=== PATIENT | male | born 1980 | race Caucasian/White ===

== ENCOUNTER 2018-08-22 03:52 | Inpatient (IN) ==
[2018-08-22] MEDS ORDERED: LABETALOL IV ONE (04:30)
--- NOTE | 2018-08-22 04:31 | PROVIDER DOCUMENTATION ---
HPI-Neurological Disorder - General Chief Complaint: Weakness Stated Complaint: muscle pain Time Seen by Provider: 08/22/18 04:24 Source: patient Allergies/Adverse Reactions: Patient Allergies Allergy/AdvReac Type Severity Reaction Status Date / Time Corticosteroids AdvReac Intermediate NAUSEA/VOMI Verified 05/06/17 02:55 (Glucocorticoids) TING prednisone AdvReac Intermediate NAUSEA/VOMI Verified 05/06/17 02:55 TING Home Medications: Home Medication List Medication Instructions Recorded Confirmed Last Taken Type Cyclobenzaprine [Flexeril] 10 mg PO TID PRN #20 tab 05/06/17 Unknown Rx Hydrocodone/Acetaminophen [[place] 1 ea PO Q4-6H PRN PRN #14 tab 05/06/17 Unknown Rx 7.5-325 Tablet] Ibuprofen [Motrin] 800 mg PO Q8H PRN PRN #30 tab 05/06/17 Unknown Rx - History of Present Illness-Neuro Nature of Presenting Problem: pt says that 2 days ago, began with muscle ache in thighs, shoulders, like had over exerted, which has not done. Last pm, went to urgent care, where was dx with the flu, even though had not had fever, no N/V. No swab was done either. When awoke this am, was barely able to move R leg, was not able to use L arm, nor left leg. Is able to use R arm to small degree. No headache, no CO, no SOB, no palpitations. no incontinence Review of Systems - Adult - REVIEW OF SYSTEMS - ADULT Constitutional: reports: see HPI Eyes: reports: no symptoms reported Ears, Nose, Mouth & Throat: reports: no symptoms reported Cardiovascular: reports: no symptoms reported Respiratory: reports: no symptoms reported Gastrointestinal: reports: no symptoms reported Genitourinary: reports: no symptoms reported Musculoskeletal: reports: see HPI Integumentary: reports: no symptoms reported Neurological: reports: see HPI Psychiatric: reports: no symptoms reported Endocrine: reports: no symptoms reported Hematologic/Lymphatic: reports: no symptoms reported Allergic/Immunologic: reports: no symptoms reported Past History - Adult - PAST MEDICAL HISTORY-ADULT Review of Records: reports: Medications Reviewed Major Childhood Illnesses: reports: denies history Cardiovascular: reports: HTN, [place] (05/2013) Respiratory: reports: other (lung spot) Gastrointestinal: reports: denies history Obstetrical/Gynecological: reports: denies history Genitourinary: reports: other (kidney stents) Musculoskeletal: reports: denies history Neurological: reports: denies history Psychiatric: reports: denies history Endocrine/Immune: reports: denies history Other Conditions: reports: denies history - PRIOR SURGERIES/PROCEDURES Surgical/Procedure History: reports: appendectomy, orthopedic (extremity) (hand surgery), back/neck (back), other (partial lung resection right side, ) - PRIOR HOSPITALIZATIONS Prior Hospitalizations: reports: for other non-related - IMMUNIZATION STATUS Childhood Immunizations: See Nurse Assessment Flu Vaccine: See Nurse Assessment - FAMILY HISTORY Family History: reviewed, not pertinent - SOCIAL HISTORY Smoking: cigarettes Physical Exam- Neurological - Physical Exam-Neuro Initial Vital Signs Reviewed: Yes General Appearance: appears well, alert, mild distress Eye Exam: bilateral eye: normal inspection, PERRL, EOMI HENMT: normocephalic/atraumatic, moist mucous membranes, normal ENT inspection, pharynx normal Head Injury: no evidence of injury Neck: non-tender, full range of motion, supple Respiratory: lungs clear, normal breath sounds, no pleuratic chest pain, no respiratory distress, no accessory muscle use Cardiovascular: regular rate, rhythm, no edema, no murmur Abdominal Exam: non tender, soft Peripheral Pulses: radial (R): 2+, radial (L): 2+ Extremity: no pedal edema, no calf tenderness, other (weakness of all extrem, able to move R arm against gravity, no others) buggy ladle tender Exam: other (CN II-XII intact) Coordination/Gait: other (not able) Motor/Sensory: weak motor strength RUE, weak motor strength LUE (unable to use), weak motor strength RLE (unable to lift), weak motor strength LLE (unable to lift) Neurologic: other (CN II-XII intact) Integumentary: normal color, normal turgor, warm/dry Psych/Mental Status: normal mood/affect, normal thought content, normal thought process, oriented x 3 - Glascow Coma Scale Best Eye Response: (4) open spontaneously Best Verbal Response: (5) oriented Best Motor Response: (6) obeys commands Progress - PLAN OF CARE/RESULTS Progress/Plan/Lab Results: Vital Signs - 8 hr 08/22/18 04:06 08/22/18 05:04 Temperature 97.9 F 97.8 F Pulse Rate 76 67 Respiratory Rate 20 16 Blood Pressure 147/120 138/86 O2 Sat by Pulse Oximetry 96 96 Laboratory Results - last 24 hr 08/22/18 08/22/18 08/22/18 04:12 04:12 04:17 WBC 10.44 RBC 5.86 Hgb 17.5 Hct 49.7 MCV 84.8 MCH 29.9 MCHC 35.2 RDW Std Deviation 13.4 Plt Count 351 MPV 9.8 Immature Gran % (Auto) 0.4 Neut % (Auto) 85.9 H Lymph % (Auto) 11.5 L Anson % (Auto) 2.2 Eos % (Auto) 0.0 Baso % (Auto) 0.0 Immature Gran # (Auto) 0.04 Neut # (Auto) 8.97 H Lymph # (Auto) 1.20 Anson # (Auto) 0.23 Eos # (Auto) 0.00 Baso # (Auto) 0.00 Sodium 132 L Potassium 1.8 L* Chloride 99 Carbon Dioxide 18 L Anion Gap 15 BUN 14 Creatinine 0.8 Estimated GFR/1.73 m2 > 60 BUN/Creatinine Ratio 18 Glucose 249 H POC Glucose 231 H Calculated Osmolality 273 Calcium 9.2 Phosphorus 0.8 L* Magnesium 1.9 Total Bilirubin 0.18 L AST 19 ALT 18 Alkaline Phosphatase 105 Total Protein 7.3 Albumin 3.9 Globulin 3.4 Albumin/Globulin Ratio 1.1 Urine Source Urine Opiates Screen Ur Oxycodone Screen Ur Methadone, Qual Ur Barbiturates Screen Ur Phencyclidine Scrn Ur Amphetamines Screen U Benzodiazepines Scrn Urine Cocaine Screen U Cannabinoids Screen 08/22/18 08/22/18 05:20 05:20 WBC RBC Hgb Hct MCV MCH MCHC RDW Std Deviation Plt Count MPV Immature Gran % (Auto) Neut % (Auto) Lymph % (Auto) Anson % (Auto) Eos % (Auto) Baso % (Auto) Immature Gran # (Auto) Neut # (Auto) Lymph # (Auto) Anson # (Auto) Eos # (Auto) Baso # (Auto) Sodium Potassium Chloride Carbon Dioxide Anion Gap BUN Creatinine Estimated GFR/1.73 m2 BUN/Creatinine Ratio Glucose POC Glucose Calculated Osmolality Calcium Phosphorus Magnesium Total Bilirubin AST ALT Alkaline Phosphatase Total Protein Albumin Globulin Albumin/Globulin Ratio Urine Source CLEAN CATCH Urine Opiates Screen NONE DETECTED Ur Oxycodone Screen NONE DETECTED Ur Methadone, Qual NONE DETECTED Ur Barbiturates Screen NONE DETECTED Ur Phencyclidine Scrn NONE DETECTED Ur Amphetamines Screen NONE DETECTED U Benzodiazepines Scrn NONE DETECTED Urine Cocaine Screen NONE DETECTED U Cannabinoids Screen NONE DETECTED Orders Category Date Time Status CT HEAD/C-SPINE W/O CONTRAST [CT] Stat Exams 08/22/18 04:24 Taken CBC WITH DIFF [HEME] Stat Lab 08/22/18 04:12 Completed COMPREHENSIVE METABOLIC PANEL [CHEM] Stat Lab 08/22/18 04:12 Completed MAGNESIUM [CHEM] Stat Lab 08/22/18 04:12 Completed PHOSPHORUS [CHEM] Stat Lab 08/22/18 04:12 Completed TSH Stat Lab 08/22/18 04:12 Received URINALYSIS W/POSS RFLX CULT [URINALYSIS] Stat Lab 08/22/18 05:20 Ordered URINE DRUG SCREEN Stat Lab 08/22/18 05:20 Completed Labetalol Med 08/22/18 04:30 Discontinued 20 mg IV NOW ONE Potassium Chloride 20 Meq/Swi Med 08/22/18 06:00 Discontinued 20 meq in 100 ml IV Q2H Potassium Chloride 20% Liquid Med 08/22/18 05:27 Discontinued 40 meq PO NOW ONE Potassium Phosphate 40 meq Med 08/22/18 05:40 Active 0.9% Sodium Chloride Inj [Ns] 250 ml IV NOW Result Diagrams: 08/22/18 04:12 08/22/18 04:12 - EKG 1 Time of EKG reading by physician:: 04:45 EKG Read and Signed by:: Jayce Downing EKG Interpretation (*Must complete 3 of following elements*): Abnormal Rate: 77 Rhythm: NSR QRS: normal ST Wave: non-specific ST changes - CT/MRI 1 CT Study: Cervical Spine, Head Impression: Normal - CONSULTS/PCP/HOSPITALIST Notification #1 *Consult/PCP/Hospitalist*: [place] Time Discussed: 05:44 Consult Disposition: Will see in ED, Admit Departure - Departure Date of Disposition Decision: 08/22/18 Time of Disposition Decision: 05:43 DIAGNOSIS: Hypokalemia, Hypophosphatemia Disposition: ADMITTED INPATIENT 09 Certified Medical Emergency: Emergent Condition: Fair Referrals and Follow-Ups: None,PCP [Primary Care Provider] - - Critical Care Note This patient required my direct & personal management of CC.: No Attestation - Physician/ ANA Attestation Patient care was provided by Advanced Practice Provider:: No The physician spent face to face time with patient:: Yes Advanced Practice Provider documentation review:: Supervising physician onsite and consulted in the evaluation and care of this patient. The physician did have a face to face encounter with the patient.
[2018-08-22 04:40] LABS: HEMATOCRIT 49.7 % (42.0-52.0); HEMOGLOBIN 17.5 g/dL (14.0-18.0); IMM GRAN# 0.04 X1000 (0.0-0.04); IMM GRAN% 0.4 % (0.0-0.5); LYMPH% 11.5 % (20.5-51.1); MCH 29.9 PG (27-31); MCHC 35.2 g/dL (33-37); MCV 84.8 FL (81-99); MONO# 0.23 X1000 (0.11-0.59); MONO% 2.2 % (1.7-9.3); MPV 9.8 FL (7.4-10.4); NEUT# 8.97 X1000 (1.4-6.5); NEUT% 85.9 % (42.2-75.2); PLT 351 X1000 (130-400); RBC 5.86 XMIL (4.7-6.1); RDW 13.4 % (11.5-14.5); WBC 10.44 X1000 (4.8-10.8)
[2018-08-22 05:26] LABS: AGAP 15; ALB/GLOB RATIO 1.1; ALBUMIN 3.9 g/dL (3.5-5.0); ALKALINE PHOSPHATASE 105 U/L (32-122); BUN 14 mg/dL (8-22); CALCIUM 9.2 mg/dL (8.8-10.2); CHLORIDE 99 mmol/L (98-107); COSMO 273; CREATININE 0.8 mg/dL (0.7-1.2); ESTIMATED GFR > 60; GLUCOSE 249 mg/dL (70-104); GOT 19 U/L (10-34); GPT 18 U/L (10-44); MAGNESIUM 1.9 mg/dL (1.5-2.7); SODIUM 132 mmol/L (136-145); TCO2 18 mmol/L (25-35); TOTAL BILIRUBIN 0.18 mg/dL (0.20-1.00); TOTAL PROTEIN 7.3 g/dL (6.3-8.3)
[2018-08-22 05:27] LABS: POTASSIUM 1.8 mmol/L (3.5-5.1)
[2018-08-22] MEDS ORDERED: POTASSIUM CHLORIDE 40 MEQ/SWI 40 MEQ/100 ML IVPB IV ONE (05:27)
[2018-08-22] MEDS ORDERED: POTASSIUM CHLORIDE 20% LIQUID PO ONE (05:27)
[2018-08-22 05:28] LABS: PHOSPHORUS 0.8 mg/dL (2.7-4.5)
[2018-08-22] MEDS ORDERED: POTASSIUM PHOSPHATE 40 MEQ in NS 250 ML IV ONE (05:40)
[2018-08-22 05:41] LABS: BILIRUBIN URINE NEGATIVE (NEGATIVE); BLOOD URINE MODERATE (NEGATIVE); COLOR YELLOW; GLUCOSE URINE >1000 mg/dL (NEGATIVE); KETONE URINE NEGATIVE (NEGATIVE); LEUKOCYTES URINE NEGATIVE (NEGATIVE); NITRITE URINE NEGATIVE (NEGATIVE); PROTEIN URINE 30 mg/dL (NEGATIVE); SP GRAVITY URINE 1.028; TURBIDITY URINE CLEAR (CLEAR); URINE SOURCE CLEAN CATCH; UROBILINOGEN URINE NORMAL (NORMAL)
[2018-08-22 05:43] LABS: UR EPITHELIAL CELLS <10 /HPF (<10); URINE BACTERIA NEGATIVE /HPF; URINE RBC TNTC /HPF (<10); URINE WBC <10 /HPF (<10)
[2018-08-22 05:45] LABS: UR AMPHETAMINES QUAL NONE DETECTED (NONE DETECT); UR BARBITUATES QUAL NONE DETECTED (NONE DETECT); UR BENZODIAZEPIN QUAL NONE DETECTED (NONE DETECT); UR CANNABINOIDS QUAL NONE DETECTED (NONE DETECT); UR COCAINE QUAL NONE DETECTED (NONE DETECT); UR METHADONE QUAL NONE DETECTED (NONE DETECT); UR OPIATES QUAL NONE DETECTED (NONE DETECT); UR OXYCODONE QUAL NONE DETECTED (NONE DETECT); UR PCP QUAL NONE DETECTED (NONE DETECT)
[2018-08-22] MEDS ORDERED: POTASSIUM CHLORIDE 20 MEQ/SWI 20 MEQ/100 ML IVPB IV SCH (06:00)
--- NOTE | 2018-08-22 07:50 | Diag Imaging Result Doc PS360 ---
EXAM: CT HEAD/C-SPINE W/O CONTRAST INDICATION: extreme weakness TECHNIQUE: This exam was performed using automated exposure control, adjustment of mA or kV according to patient size, and/or use of iterative reconstruction technique. COMPARISON: CT C-spine dated 02/18/2015 FINDINGS: Head: There is no definite acute infarct given the limited sensitivity of CT versus MRI. There is no discrete intracranial mass, mass effect, or intracranial hemorrhage. There is a small polypoid left maxillary sinus mucus retention cyst. Surrounding soft tissues and bony structures are essentially unremarkable, otherwise. C-spine: The central canal appears to be grossly patent. There is no discrete fracture, subluxation, or intrinsic osseous lesion. The surrounding soft tissues are essentially unremarkable. IMPRESSION: 1.No evidence of acute intracranial pathology. 2.No evidence of fracture or other definite acute C-spine injury. Electronically signed by Chi Gamboa 08/22/2018 7:48 AM
[2018-08-22] MEDS ORDERED: KLOR-CON PO ONE (08:01)
[2018-08-22] MEDS ORDERED: NS + KCL 40 MEQ 1,000 ML IV ONE (08:02)
[2018-08-22] MEDS ORDERED: TYLENOL PO PRN (08:07)
[2018-08-22] MEDS ORDERED: ZOFRAN IV PRN (08:07)
--- NOTE | 2018-08-22 08:40 | EKG Report ---
Test Performed on : 08/22/2018 04:20:58 AM Test Reason : ED. NO EKG ORDER FOR MUSE Blood Pressure : / mmHG Vent. Rate : 077 BPM Atrial Rate : 077 BPM P-R Int : 186 ms QRS Dur : 114 ms QT Int : 354 ms P-R-T Axes : 060 052 000 degrees QTc Int : 400 ms Normal sinus rhythm. Nonspecific ST and T wave abnormality Abnormal ECG When compared with ECG of 05-NOV-2016 20:12, QRS duration has increased T wave inversion now evident in Inferior leads Nonspecific T wave abnormality, worse in Anterolateral leads Unconfirmed Result
[2018-08-22 09:38] LABS: MAGNESIUM 1.9 mg/dL (1.5-2.7); POTASSIUM 2.8 mmol/L (3.5-5.1)
--- NOTE | 2018-08-22 09:45 | Diag Imaging Result Doc PS360 ---
EXAM: FLAT/UPRIGHT ABD/1 VIEW CHEST HISTORY: hx right upper lobectomy; RLQ abd tender TECHNIQUE: Flat and upright with chest, four views COMPARISON: Chest compared to 11/05/2016 FINDINGS: Poor inspiratory effort. No pneumonia. No free air beneath the diaphragm. There is stool throughout the colon. No bowel obstruction. No organomegaly. No abnormal calcifications in the abdomen. Left pelvic phlebolith. There are surgical clips in the right lower quadrant. IMPRESSION: Constipation Electronically signed by Earl Christianson 08/22/2018 9:42 AM
[2018-08-22 09:51] LABS: HEMOGLOBIN A1C 5.4 % (4.8-6.0)
--- NOTE | 2018-08-22 10:05 | HISTORY AND PHYSICAL ---
ADDENDUM REPORT ASSESSMENT AND PLAN: 1. Fungal infection in the right groin and along the left jaw; he also has right thigh ring worm along with right lower abdominal ring worm. We will order an antifungal cream. He also has severe fungal infection of the toenails. Could consider ordering an oral regimen for fungal infection. 2. Hypertension. He did receive a dose of labetalol in the ER. He seems stable at the time being. We will evaluate if there is a need for further medication to treat his hypertension. Dictated by RODY Berg for Roselia Novoa MD cc: RODY Berg MD
[2018-08-22] MEDS ORDERED: VITAMIN D PO SCH (10:45)
--- NOTE | 2018-08-22 11:09 | HISTORY AND PHYSICAL ---
PRIMARY CARE PROVIDER: No one. CHIEF COMPLAINT: Muscle aches, pains and weakness. HISTORY OF PRESENT ILLNESS: Mr. Jason Curry is a 38-year-old, male with a medical history of right upper lobe lung cancer diagnosed in 2004 who had a lobectomy with chemo and radiation, history of what he says is a stress induced myocardial infarctions at age 14. Borderline diabetes mellitus and kidney stone history. He states that since Wednesday, today is Wednesday so for 3 days now, he has been having tightness in his shoulders, legs and lower back. He states it feels as if he had gone to the gym that is the way the tightness felt. He did get some get dizziness yesterday, lost his balance when standing. He has been having sweats, but he feels like that is not any different than what he normally has. He works outside at the [employer] where it is hot and sweaty. He does Wednesday through nights. He has been having occipital type headache behind the ears through the back of the head, but his CT was negative. He claims that he went yesterday to [facility] where they diagnosed him with the flu, but never had any fevers, and was given a shot of a muscle relaxer and a steroid which he states usually induces vomiting for him. He denies any nausea or vomiting. He denies any diarrhea or excessive urination. He states that he does cough up phlegm but it is the color of the dust that he is surrounded by when he is at work, and that is the only time he coughs. Denies fever. No other complaints. He comes back in with the same complaints of significant muscle weakness and muscle tightness in the lower extremities and through the shoulder and lower back. What was found is that he had a significantly low potassium level of 1.8, and the phosphorus level of 0.8 so he will stay here, and be treated. We will keep him on a telemetry. PAST MEDICAL HISTORY: 1. In 2004, he was diagnosed with right upper lobe lung cancer. He was treated with chemo radiation and a right upper lobectomy in [place]. He states that the lobectomy was actually here at [facility]. 2. Stress-induced myocardial infarction age 14. He states he had a left heart catheterization, and it was negative. 3. Degenerative disk disease. 4. Borderline diabetes mellitus type 2. 5. Kidney stones. 6. Hypertension. PAST SURGICAL HISTORY: 1. Right upper lobectomy. Surgery was done here. 2. He had a left heart catheterization at the age of 14 which was negative. 3. Appendectomy. 4. Left hand steal removed. 5. Epidural injections. 6. Kidney stent placed and removed in the past for kidney stones. SOCIAL HISTORY: He smokes anywhere from 1 to 2 packs per day. He has been smoking since age of 10. Denies chewing tobacco. He drinks maybe once every 6 months. Denies any illicit drug use. Lives at home with his . 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 FAMILY HISTORY: On his mother's side of the family, mother had ovarian cancer. Grandmother had diabetes. Grandfather had hypertension in aunts and uncles that had multiple types of cancers, 2 uncles had lung cancer. Father's side of family has heart disease, but he is not sure of a lot of his father's side of the family. ALLERGIES: Steroids upsets his stomach and causes abdominal pain and vomiting. He did receive a dose when he was at [facility] yesterday. HOME MEDICATIONS: He uses an unknown fungal cream for the rash on his body. REVIEW OF SYSTEMS: Fourteen point review of systems are complete and all were negative except for those mentioned above in HPI. He did complain of itching and dry skin in multiple areas of his body including the right groin, right thigh, left abdomen, and the left jaw line which appears to be a fungal rash. PHYSICAL EXAMINATION: VITAL SIGNS: Temperature 98.2 degrees, heart rate 61, respiratory rate 12, blood pressure 145/82, and O2 saturation 98%. O2 saturation 98%. GENERAL: Mr. Jason Curry is a 38-year-old, male, who is in no acute distress. He is able to answer questions appropriately. HEENT: Atraumatic, normocephalic. Pupils equal, round, and reactive to light. Extraocular movements intact. Mucous membranes are moist. NECK: Trachea midline. CARDIOVASCULAR: S1, S2. Regular rate and rhythm. No rubs, gallops, or murmurs. No lower extremity edema. +2 dorsalis and radial pulses. Negative JVD or carotid bruits. PULMONARY: Clear to auscultation. Bilateral breath sounds. No accessory muscle use or work of breathing noted. GI: Soft and tender in the right lower quadrant. Positive bowel sounds x4. EXTREMITIES: Moves all extremities equally. Full range of motion. NEUROLOGIC: Alert and oriented x3. Follows commands. Sensory is intact. SKIN: Warm, dry, and intact. There is a fungal rash in the right groin. A ring worm rash on the right upper thigh, another ring worm rash in the left lower abdomen. Then, there is a fungal rash along the left jawline. He also has severe fungal infection of the toenails. LABORATORY DATA: White blood cells 10,000, hemoglobin 17, hematocrit 49 and platelet count 351,000. Sodium 132, potassium 1.8, BUN 14, creatinine 0.8, glucose 249, and calcium 9.2, phosphorus 0.8, magnesium 1.8, bilirubin 0.18, AST 19, ALT 18, albumin 3.9, and TSH 0.76. Urinalysis 30 protein, greater than 1000 glucose. Moderate blood too numerous to count red blood cells. IMAGIN. Cervical CT no evidence of acute intracranial pathology. No evidence of fracture or other definite acute C-spine injury. 2. EKG normal sinus rhythm, rate 77, and QTc 400. ASSESSMENT/PLAN: 1. Severe hypocalcemia and severe hypokalemia with hypophosphatemia. Potassium phos is being administered. He is getting supplemental potassium as well. Vitamin D level has been ordered. He denies any causes that could happen such as diarrhea or vomiting. The cause is really unknown and is causing the muscles to contract on him. He denies palpitations and the heart rhythm. There is no significant ectopy. Potassium is 1.8, and the phos level is 0.8. We will check another BMP with a mag around 5:00 in the evening today. The Mag levels normal at 1.9. 2. Diabetes mellitus type 2 versus steroid induced hyperglycemia. He was told in the past. He is borderline diabetic. We do not have a hemoglobin A1c to evaluate the average glucose for him. He did receive a dose of steroids intramuscularly while he was at the [facility] yesterday. On 2 checks, we have 231 and 249, so we will check hemoglobin A1c. I may have to start him on sliding scale insulin and pattern blood glucoses and diabetic diet. 3. Right lower quadrant abdominal tenderness with palpation. He was unaware of the tenderness there until palpated so we will get an abdominal x-ray. He states he has multiple bowel movements a day that are normal for him. Otherwise, no abdominal pain, nausea or vomiting. 4. History of right upper lobe lung cancer. He denies having any abnormal phlegm except for when he is at work. He coughs up dust colored hand held at work. We did stress that he should stop smoking as he still continues to smoke even with a history of lung cancer in 2004. 5. Tobacco abuse. Smokes anywhere from 1 to 2 packs per day. Cessation was discussed. No wishes to quit at this time. 6. Complains of a headache. His head CT was negative. He can have Tylenol. 7. Could be an anion gap metabolic acidosis. His bicarb is 18. His an ion gap is 15. Hopefully, rehydrating him with fluids and controlling his glucose it will improve. 8. He has moderate blood and too numerous to count red blood cells in the urine. He was tender in the right lower quadrant. Abdominal x-ray probably will not show anything. We could possibly get a CAT scan. We will wait and see what all of this imaging shows for now. 9. Deep venous thrombosis prophylaxis. Lovenox. Dictated by RODY Berg for Roselia Novoa MD cc: RODY Berg MD [facility]
[2018-08-22] MEDS: HUMULIN R SUBQ SCH ×3 (11:12→20:45)
[2018-08-22] MEDS: MONISTAT-DERM 2% CREAM TOP SCH ×2 (11:16→21:55)
[2018-08-22 17:50] LABS: AGAP 10; BUN 13 mg/dL (8-22); CALCIUM 8.3 mg/dL (8.8-10.2); CHLORIDE 107 mmol/L (98-107); COSMO 284; CREATININE 0.7 mg/dL (0.7-1.2); ESTIMATED GFR > 60; GLUCOSE 149 mg/dL (70-104); MAGNESIUM 1.9 mg/dL (1.5-2.7); PHOSPHORUS 2.3 mg/dL (2.7-4.5); POTASSIUM 4.5 mmol/L (3.5-5.1); SODIUM 141 mmol/L (136-145); TCO2 24 mmol/L (25-35)
[2018-08-22] MEDS ORDERED: SODIUM PHOSPHATE 40 MMOL in NS 250 ML IV ONE (17:52)
[2018-08-22] MEDS ORDERED: K-PHOS PO SCH (21:00)
[2018-08-23 05:39] LABS: BASO# 0.02 X1000 (0.0-0.2); BASO% 0.1 % (0.0-0.8); EOS# 0.12 X1000 (0.0-0.7); EOS% 0.9 % (0.0-10.0); HEMATOCRIT 42.9 % (42.0-52.0); HEMOGLOBIN 14.9 g/dL (14.0-18.0); IMM GRAN# 0.11 X1000 (0.0-0.04); IMM GRAN% 0.8 % (0.0-0.5); LYMPH# 4.24 X1000 (1.2-3.4); LYMPH% 30.1 % (20.5-51.1); MCH 30.3 PG (27-31); MCHC 34.7 g/dL (33-37); MCV 87.2 FL (81-99); MONO# 1.12 X1000 (0.11-0.59); MPV 9.9 FL (7.4-10.4); NEUT# 8.47 X1000 (1.4-6.5); NEUT% 60.1 % (42.2-75.2); PLT 291 X1000 (130-400); RBC 4.92 XMIL (4.7-6.1); RDW 14.1 % (11.5-14.5); WBC 14.08 X1000 (4.8-10.8)
[2018-08-23 05:48] LABS: INR 0.89; PROTIME 12.8 Seconds (11.0-16.0)
[2018-08-23 05:49] LABS: PTT 23.9 Seconds (22.3-41.8)
[2018-08-23] MEDS: HUMULIN R SUBQ SCH ×4 (06:00→21:10)
[2018-08-23 06:04] LABS: AGAP 12; ALB/GLOB RATIO 1.1; ALBUMIN 3.1 g/dL (3.5-5.0); ALKALINE PHOSPHATASE 82 U/L (32-122); BUN 13 mg/dL (8-22); CALCIUM 8.1 mg/dL (8.8-10.2); CHLORIDE 108 mmol/L (98-107); COSMO 282; CREATININE 0.7 mg/dL (0.7-1.2); ESTIMATED GFR > 60; GLUCOSE 104 mg/dL (70-104); GOT 23 U/L (10-34); GPT 18 U/L (10-44); POTASSIUM 3.3 mmol/L (3.5-5.1); SODIUM 141 mmol/L (136-145); TCO2 21 mmol/L (25-35); TOTAL BILIRUBIN 0.16 mg/dL (0.20-1.00); TOTAL PROTEIN 5.9 g/dL (6.3-8.3)
--- NOTE | 2018-08-23 07:19 | EKG Report ---
Test Performed on : 08/23/2018 06:47:50 AM Test Reason : hypokalemia Blood Pressure : / mmHG Vent. Rate : 050 BPM Atrial Rate : 050 BPM P-R Int : 158 ms QRS Dur : 100 ms QT Int : 468 ms P-R-T Axes : 047 040 035 degrees QTc Int : 426 ms Sinus bradycardia. with sinus arrhythmia. Otherwise normal ECG When compared with ECG of 22-AUG-2018 04:20, (Unconfirmed) Vent. rate has decreased BY 27 BPM Non-specific change in ST segment in Inferior leads Non-specific change in ST segment in Lateral leads Nonspecific T wave abnormality has replaced inverted T waves in Inferior leads Confirmed by Sam Harrison MD ([id number]) on 08/23/2018 9:22:54 PM
[2018-08-23] MEDS: MONISTAT-DERM 2% CREAM TOP SCH ×2 (09:51→21:11)
[2018-08-23] MEDS: LOVENOX SUBQ SCH (09:51)
[2018-08-23] MEDS ORDERED: KLOR-CON PO ONE (12:31)
[2018-08-23] MEDS ORDERED: POTASSIUM CHLORIDE 40 MEQ in NS 1,000 ML IV ONE (14:47)
--- NOTE | 2018-08-23 15:08 | PROGRESS NOTE ---
DATE: 08/23/2018 SUBJECTIVE: Patient has no major complaints. OBJECTIVE: Blood pressure is 161/91, heart rate 54, respiratory rate 13, temperature 97.6 degrees. Cardiovascular: Regular rate and rhythm. Pulmonary: Bilateral breath sounds clear to auscultation. GI: Soft, nontender, nondistended. Bowel sounds were positive. Laboratory Data: White count has jumped up to 14 for unclear reasons. Potassium is at 3.3, phosphorus is up to 3.9. Clinically, he seems a bit better. PROBLEM LIST: 1. Hypokalemia and hypophosphatemia. We will continue hydration and treatment, and follow closely. His phosphorus is better. Potassium is still low. Really unclear reasons why but we are going to continue to monitor. I will order 24 hour urine potassium just to make sure he is not having a hypokalemia due to renal losses. 2. Hypertension. He is not on any current medications. I am going to give him a little bit of medication for that. DISPOSITION: I think he is doing better. I think he is probably safe to go to the floor and we will anticipate discharge tomorrow if his levels look more appropriate. cc: Ross Nichols MD
[2018-08-23] MEDS: NORVASC PO SCH (15:34)
[2018-08-24 06:32] LABS: BASO# 0.04 X1000 (0.0-0.2); BASO% 0.4 % (0.0-0.8); EOS# 0.24 X1000 (0.0-0.7); EOS% 2.4 % (0.0-10.0); HEMATOCRIT 43.5 % (42.0-52.0); HEMOGLOBIN 14.8 g/dL (14.0-18.0); IMM GRAN# 0.06 X1000 (0.0-0.04); IMM GRAN% 0.6 % (0.0-0.5); LYMPH# 4.26 X1000 (1.2-3.4); LYMPH% 42.6 % (20.5-51.1); MCV 88.2 FL (81-99); MONO# 0.77 X1000 (0.11-0.59); MONO% 7.7 % (1.7-9.3); MPV 9.5 FL (7.4-10.4); NEUT# 4.64 X1000 (1.4-6.5); NEUT% 46.3 % (42.2-75.2); PLT 286 X1000 (130-400); RBC 4.93 XMIL (4.7-6.1); RDW 14.6 % (11.5-14.5); WBC 10.01 X1000 (4.8-10.8)
[2018-08-24] MEDS: HUMULIN R SUBQ SCH ×2 (06:57→10:53)
[2018-08-24 08:05] LABS: AGAP 6; CHLORIDE 105 mmol/L (98-107); POTASSIUM 4.5 mmol/L (3.5-5.1); SODIUM 139 mmol/L (136-145); TCO2 28 mmol/L (25-35)
[2018-08-24 08:06] LABS: BUN 10 mg/dL (8-22); COSMO 276; CREATININE 0.7 mg/dL (0.7-1.2); ESTIMATED GFR > 60; GLUCOSE 88 mg/dL (70-104); PHOSPHORUS 3.6 mg/dL (2.7-4.5)
[2018-08-24] MEDS: NORVASC PO SCH (09:21)
[2018-08-24] MEDS: LOVENOX SUBQ SCH (09:21)
[2018-08-24] MEDS: MONISTAT-DERM 2% CREAM TOP SCH (09:21)
[2018-08-24 11:46] VITALS: BP 159/85
--- NOTE | 2018-08-24 22:58 | DISCHARGE SUMMARY ---
ADMISSION DATE: 08/22/2018 DISCHARGE DATE: 08/24/2018 DISCHARGE DIAGNOSES: 1. Hypophosphatemia, unclear source. 2. Hypokalemia. 3. Hypocalcemia. 4. Hypertension. HOSPITAL COURSE: Briefly, this is a 38-year-old male with history of lung cancer about 14 years ago and borderline diabetes. He came in for weakness. He was found to have hypocalcemia, hypophosphatemia and hypokalemia. He does work in the heat. He works nights at the [employer]. His potassium was 1.8. His sugar was elevated, 249. His phosphorus was 0.8. He did not have any nausea, vomiting or diarrhea. Unclear what caused his electrolyte disturbance. He reports no severe alcohol use. He had been on some steroids, though. In any case, with supplemental correction his levels improved. Abdominal x-ray showed constipation. Cervical films, CT and such are negative. By 08/23 his labs had improved. Potassium was still a little bit low. He came in at 1.8, got up to 4.5. It was 3.3 on 08/23 and then on 08/24 was 4.5. His phosphorus had also improved. His sugars, though, have been normal; 90s, 100s. A1c was only 5.4, so I did not commit him to long-term medications. He will definitely need to be set up with a PCP. I did do a 24-hour urine collection in case he has hypokalemia related to some sort of malabsorption or renal dysfunction. Recommend he follow up with potentially Nephrology, but he needs to be set up with a PCP. Repeat labs in 1 to 2 weeks. DISCHARGE CONDITION: Stable. DISCHARGE MEDICATIONS: We did discharge him on potassium, Klor-Con 20 daily and Norvasc 5 daily for hypertension. cc: Ross Nichols MD
== END 2018-08-24 13:49 | disposition home or self-care (01) | DRG 642 ==
LOC: SUPCPDRO → ED 03:52 → EDIPHOLD 03:53 → SUATTDRO 03:53 → 3S 12:01 → 4N 08-23 17:52
PROVIDERS: ATTEND Internal Medicine
CPT/HCPCS: 70450; 72125; 74022; 80048; 80053; 80101; 80301; 80307; 80324; 80345; 80346; 80353; 80358; 80361; 80365; 81001; 81050; 82306; 82550; 82948; 83036; 83735; 83992; 84100; 84132; 84133; 84443; 85025; 85610; 85730; 87275; 87276; 87804; 93005; 93010; 94761; 94799; A9270; G0431; G0434; G0479; G0480; J1650; J3480; J7030; J7050; XXXXX